=== PATIENT | male | born 1945 | race African-American/Black ===

== ENCOUNTER → 2020-07-19 | Outpatient (CLI) | payer MEDICARE ==
[2020-07-19 15:28] LABS: BASO % 1 % (0-3); EOS # 0.1 x10^3/uL (0.0-0.7); EOS % 1 % (0-3); HEMATOCRIT 30.4 % (39.0-53.0); LYMPH # 1.2 x10^3/uL (1.0-4.8); LYMPH % 16 % (24-48); MEAN CORPUSCULAR HEMOGLOBIN 28 pg (25-35); MEAN CORPUSCULAR HGB CONC 33 g/dL (31-37); MEAN CORPUSCULAR VOLUME 84 fL (79-100); MONO % 13 % (0-9); NEUT # 5.2 x10^3/uL (1.8-7.7); NEUT % 69 % (31-73); PLATELET COUNT 183 x10^3/uL (140-400); RED BLOOD COUNT 3.62 x10^6/uL (4.30-5.70); RED CELL DISTRIBUTION WIDTH 15.5 % (11.5-14.5); WHITE BLOOD COUNT 7.5 x10^3/uL (4.0-11.0)
[2020-07-19 15:40] LABS: ALBUMIN 3.6 g/dL (3.4-5.0); CALCIUM 9.2 mg/dL (8.5-10.1); CREATININE 4.5 mg/dL (0.7-1.3); GFR 15.6; PHOSPHORUS 4.8 mg/dL (2.6-4.7); POTASSIUM 4.2 mmol/L (3.5-5.1)
[2020-07-19 16:14] LABS: CREATININE,RANDOM URINE 72.7 mg/dL (Not Establ.)
[2020-07-20 11:38] LABS: CALCIUM PTH 10.2 mg/dL (8.6-10.2); PHOSPHORUS PTH 4.6 mg/dL (2.8-4.1); PTH INTACT 18 pg/mL (15-65)
== END ==
LOC: LAB 15:00
PROVIDERS: ATTEND Nurse Practitioner
DX: N18.4 Chronic kidney disease, stage 4 (severe) (principal); N25.81 Secondary hyperparathyroidism of renal origin
CPT/HCPCS: 36415; 80069; 82306; 82570; 83970; 84156; 85025